=== PATIENT | female | born 1995 | race Hispanic/Latino ===

== ENCOUNTER 2022-09-13 04:38 | Emergency (ER) | payer OTHER ==
[~2022-09-13] VITALS: Ht 167.6 cm; Wt 97.5 kg
[2022-09-13] MEDS ORDERED: ACETAMINOPHEN 325 MG TAB PO ONE (05:30)
[2022-09-13 07:48] VITALS: BP 106/60
[2022-09-13] MEDS ORDERED: ACET-66 PO (07:58)
[2022-09-13] MEDS ORDERED: OSEL75 PO (07:58)
== END 2022-09-13 08:07 | disposition home or self-care (01) ==
LOC: EDH 04:38
DX: O26.892 Other specified pregnancy related conditions, second trimester (principal); O99.519 Diseases of the respiratory system complicating pregnancy, unspecified trimester; J10.1 Influenza due to other identified influenza virus with other respiratory manifestations; Z20.822 Contact with and (suspected) exposure to COVID-19; Z3A.17 17 weeks gestation of pregnancy; Z90.49 Acquired absence of other specified parts of digestive tract; Z98.890 Other specified postprocedural states
CPT/HCPCS: 99283; 87635; 87880; 87804 ×2; C9803